=== PATIENT | female | born 1955 | race Caucasian/White ===

== ENCOUNTER 2019-09-07 11:39 | Emergency (ER) | payer MEDICARE, MEDICAID ==
[~2019-09-07] VITALS: Ht 162.6 cm; Wt 94.1 kg
[2019-09-07] MEDS ORDERED: ibuprofen tablet 400 MG TABLET PO ONE (11:55)
--- NOTE | 2019-09-07 12:40 | NUR ---
called [facility] [employer] for transport home to [employer]
--- NOTE | 2019-09-07 14:19 | NUR ---
Liliana called in regards to information #[phone]
--- NOTE | 2019-09-07 14:39 | NUR ---
called [facility] [employer] back in regards to transportation
[2019-09-07 15:06] VITALS: BP 128/63
== END 2019-09-07 15:41 | disposition home or self-care (01) ==
LOC: ER 11:39
DX: M71.22 Synovial cyst of popliteal space [Baker], left knee (principal); M71.21 Synovial cyst of popliteal space [Baker], right knee; E03.9 Hypothyroidism, unspecified; M25.561 Pain in right knee; M25.562 Pain in left knee
CPT/HCPCS: 73560; 99283

== ENCOUNTER 2022-02-11 13:52 | Emergency (ER) | payer MEDICARE, MEDICAID ==
[~2022-02-11] VITALS: Ht 160 cm; Wt 80.9 kg
[2022-02-11 15:48] LABS: BASOPHILS # (AUTO) 0.1 X10'3 (0-0.2); BASOPHILS % (AUTO) 0.7 % (0-1); EOSINOPHILS # (AUTO) 0.3 X10'3 (0-0.9); EOSINOPHILS % (AUTO) 4.1 % (0-6); HEMATOCRIT 42.2 % (35.0-45.0); HEMOGLOBIN 13.8 g/dl (12.0-16.0); LYMPHOCYTES # (AUTO) 1.7 X10'3 (1.1-4.8); LYMPHOCYTES % (AUTO) 22.6 % (21-51); MEAN CORPUSCULAR HEMOGLOBIN 30.7 PG (27.0-31.0); MEAN CORPUSCULAR HGB CONC 32.8 g/dL (33.0-36.5); MEAN CORPUSCULAR VOLUME 93.6 FL (78-98); MEAN PLATELET VOLUME 7.4 FL (7.4-10.4); MONOCYTES # (AUTO) 0.6 X10'3 (0-0.9); MONOCYTES % (AUTO) 7.6 % (2-12); NEUTROPHILS # (AUTO) 4.9 X10'3 (1.8-7.7); PLATELET COUNT 324 X10'3 (140-440); RED BLOOD COUNT 4.51 X10'6 (4.20-5.60); RED CELL DISTRIBUTION WIDTH 13.9 % (11.5-14.5); WHITE BLOOD COUNT 7.5 X10'3 (4.5-11.0)
[2022-02-11 16:01] LABS: ALANINE AMINOTRANSFERASE 32 U/L (12-78); ALBUMIN 3.4 G/DL (3.4-5.0); ALBUMIN/GLOBULIN RATIO 1.1 (1.1-1.5); ALKALINE PHOSPHATASE 83 IU/L (46-116); ANION GAP 8 (8-16); ASPARTATE AMINO TRANSFERASE 22 U/L (10-37); BILIRUBIN,TOTAL 0.2 MG/DL (0.1-1.0); BLOOD UREA NITROGEN 12 MG/DL (7-18); BUN/CREATININE RATIO 18.5 (6.6-38.0); CALCIUM 8.9 MG/DL (8.5-10.1); CHLORIDE 107 MMOL/L (99-107); CREATININE 0.65 MG/DL (0.40-0.90); GLUCOSE 118 MG/DL (70-104); POTASSIUM 3.9 MMOL/L (3.5-5.1); SODIUM 140 MMOL/L (135-145); TOTAL CARBON DIOXIDE 25.4 MMOL/L (24-32); TOTAL PROTEIN 6.6 G/DL (6.4-8.2); eGFR > 90 ML/MIN
[2022-02-11] MEDS ORDERED: quetiapine 100mg tablet PO STA (16:06)
[2022-02-11 16:09] VITALS: BP 157/77
[2022-02-11] MEDS ORDERED: OLANZapine 2.5MG tablet PO STA (16:09)
[2022-02-11] MEDS ORDERED: QUEtiapine 25mg tablet PO STA (16:17)
[2022-02-11] MEDS ORDERED: olanzapine 10mg tablet PO STA (16:18)
--- NOTE | 2022-02-11 16:27 | NUR ---
Patient requesting a snack. Patient was given a sandwich and water.
== END 2022-02-11 17:01 | disposition home or self-care (01) ==
LOC: ER 13:53
DX: R45.1 Restlessness and agitation (principal); R62.50 Unspecified lack of expected normal physiological development in childhood; E03.9 Hypothyroidism, unspecified
CPT/HCPCS: 36415; 70450; 80053; 85025; 99284